=== PATIENT | female | born 1990 | race Caucasian/White ===

== ENCOUNTER 2020-10-26 17:01 | Emergency (ER) | payer OTHER, SELFPAY ==
--- NOTE | ~2020-10-26 | XR_ITS ---
EXAMINATION: XR wrist RT min 3V DATE: 10/26/2020 17:37 INDICATION: Medial sided right wrist pain post injury TECHNIQUE: Posteroanterior, ulnar deviation, oblique, and lateral views of the right wrist were obtai navya. COMPARISON: none FINDINGS: Alignment is normal. No fracture. Joint spaces are normal. Soft tissues are unremarkable. IMPRESSION: 1. Negative right wrist radiographs. Reviewed, dictated and finalized at location [facility].
[2020-10-26 17:10] VITALS: BP 130/70; PULSE 96; RESP 20; TEMP 36.7; O2SAT 96
--- NOTE | 2020-10-26 17:12 | ED.UPPEXIN ---
HPI - Extremity Injury (Upper) General Chief Complaint: Extremity Injury, Upper Stated Complaint: Wrist pain Time Seen by Provider: 10/26/20 17:12 Source: patient Mode of arrival: ambulatory Limitations: no limitations History of Present Illness HPI narrative: 30-year-old right-handed woman comes in today complaining of right wrist pain that been present for last week. Patient states that approximately 1 week ago she was digging a hole for a post and twisted her wrist, feeling and hearing a pop in her wrist. She states that she has no numbness or tingling but over time her wrist has gotten more and more painful. Denies prior fractures and surgeries. She states that she has had multiple sprains of her wrist. She has been wearing a splint since the injury. complaint: injury to: right and wrist Onset (ago): week(s) (1) Other Extremity Injury: Right: wrist Other injuries: none Handedness: right Place: home Severity: moderate Relieving factors: immobilization and rest Exacerbating factors: movement of extremity and other ( palpation) Associated symptoms: denies other symptoms Treatments prior to arrival: cold therapy, NSAIDS and splint Related Data Allergies Allergy/AdvReac Type Severity Reaction Status Date / Time lithium Allergy Hives Verified 10/26/20 17:11 Review of Systems Review of Systems: All systems reviewed & are unremarkable except as noted in HPI and below Constitutional: Constitutional: Denies chills and Denies fever(s) ENT: Denies nasal congestion and Denies sore throat Cardiovascular: Cardiovascular: Denies chest pain and Denies radiating jaw, neck or arm pain Respiratory: Respiratory: Denies cough and Denies dyspnea Gastrointestinal: Gastrointestinal: Denies abdominal pain, Denies nausea and Denies vomiting Musculoskeletal: Musculoskeletal: Denies back pain, Reports arthralgias and Reports joint swelling Neurologic: Denies vertigo, Denies dizziness and Denies syncope Hematologic/Lymphatic: Hematologic/Lymphatic: Denies easy bleeding and Denies easy bruising Allergic/Immunologic: Allergic/Immunologic: Denies lip swelling and Denies throat swelling PMFSH Past Medical History Medical History (Updated 10/26/20 @ 17:49 by Isreal Carlos MD) Bipolar 1 disorder PTSD (post-traumatic stress disorder) Surgical History Surgical History (Updated 10/26/20 @ 17:18 by Isreal Carlos MD) Hx of tubal ligation Social History Social History (Updated 10/26/20 @ 17:21 by Isreal Carlos MD) Smoking status: Current every day smoker Alcohol intake: never Substance use: never Living arrangements: with family Additional occupation/education comments: Daycare worker Exam Const: General: healthy appearing and alert Nutritional Appearance: thin Orientation/consciousness: patient oriented x3 Limitations: no limitations Other: [id number] acute distress. Eyes: Conjunctivae: conjunctivae normal Pupils: Equal, round and reactive pupils present EOM: EOMs intact bilaterally Resp: Effort & Inspection: normal respiratory effort and not labored Auscultation: clear to auscultation bilaterally, no rales, no rhonchi and no wheezes Cardio: Rate: regular rate Rhythm: regular rhythm Heart sounds: no murmurs Skin: General skin exam: normal color, no jaundice and no pallor Rashes: no rashes Neuro: General: patient oriented x3, moves all extremities, no focal motor deficits and CN's II-XI intact bilaterally Speech: normal speech Gait exam (Neuro): Normal gait present Extrem: General: normal to inspection and no clubbing, cyanosis or edema Other: Tenderness palpation of the right distal ulna and distal radius. There is also tenderness over the carpals and proximal metacarpals of the right hand. Psych: Appearance: grossly normal and well kempt Mental Status: mental status grossly normal Affect: Anxious affect present Attitude: cooperative Thought content: Yes Normal thought con
== END 2020-10-26 18:00 | disposition home or self-care (01) ==
PROVIDERS: Emergency Provider Emergency Medicine; PCP Family Medicine
DX: S63.501A Unspecified sprain of right wrist, initial encounter (principal); Y93.H1 Activity, digging, shoveling and raking
CPT/HCPCS: 73110; 99283; L3908

== ENCOUNTER 2021-02-09 17:04 | Outpatient (CLI) | payer OTHER, SELFPAY ==
--- NOTE | ~2021-02-09 | XR_ITS ---
EXAMINATION: XR chest 2V DATE: 02/09/2021 17:25 INDICATION: Smoker with 2 months of excessive weight loss. TECHNIQUE: PA and lateral views of the chest were obtained. COMPARISON: None FINDINGS: The lungs are clear with no focal airspace opacities, pulmonary edema, pleural effusion or pneumothor ax. The cardiomediastinal silhouette is normal. Mild upper thoracic levocurvature with mild spondylos is. IMPRESSION: 1. No acute cardiopulmonary disease. Reviewed, dictated and finalized at location [facility].
== END 2021-02-09 17:05 | disposition home or self-care (01) ==
LOC: CHSIMG 17:06
PROVIDERS: PCP Family Medicine; Visit Provider Nurse Practitioner Family
DX: R63.4 Abnormal weight loss (principal)
CPT/HCPCS: 71046

== ENCOUNTER 2021-08-07 19:07 | Emergency (ER) | payer OTHER, SELFPAY ==
--- NOTE | ~2021-08-07 | CT_ITS ---
EXAMINATION: CT abdomen pelvis w con DATE: 08/07/2021 20:34 INDICATION: Right lower quadrant abdominal pain for 2 days TECHNIQUE: Computed tomography (CT) of the abdomen and pelvis was performed with 100 CC Omnipaque 350 intravenous contrast. Automated exposure control and iterative reconstruction technique were employe d. Exam dose: 168.66 mGy-cm total exam DLP. COMPARISON: None. FINDINGS: 3 mm middle lobe nodule (series 4 image 10). The liver, gallbladder, bile ducts, spleen, pancreas, pancreatic duct and adrenal glands and right ki dney are unremarkable. There is a 7.3 mm left renal cyst. The left kidney is otherwise unremarkable. No urinary tract calculus or hydroureteronephrosis. There is moderate diffuse prominence of the right bladder wall which may be due to underdistention ve rsus cystitis.. Recommend clinical correlation. Retroverted uterus with endometrial complex measuring up to almost 2 cm AP dimension, with moderate f luid in the endometrial cavity.. Normal caliber of the abdominal aorta. No intraperitoneal or retroperitoneal or pelvic mass lesion or adenopathy or ascites. No evidence of appendicitis. There is a prominent amount of fecal material in the rectum. No bowel obstruction or intraperitoneal free air. No evidence of appendicitis. Fusion at the anterior aspect of the left third and fourth lumbar vertebral bodies. No suspicious ost eolytic or osteoblastic lesions. IMPRESSION: Retroverted uterus with up to 2 cm AP dimension central endometrial echo complex moderat e fluid in the endometrial cavity Diffuse thickening and urinary bladder; cannot exclude cystitis 7.3 mm left renal cyst Reviewed, dictated and finalized at [facility]. Reviewed, dictated and finalized at location [facility]. IMPRESSION: Retroverted uterus with up to 2 cm AP dimension central endometria l echo complex moderate fluid in the endometrial cavity Diffuse thickening and urinary bladder; cannot exclude cystitis 7.3 mm left renal cyst
[2021-08-07 19:15] VITALS: BP 120/80; PULSE 88; RESP 14; TEMP 36.6; O2SAT 100
--- NOTE | 2021-08-07 19:17 | ED.ABDPAIN ---
HPI - Abdominal Pain General Chief Complaint: Abdominal Pain Stated Complaint: lower ab pain Source: patient and RN notes reviewed Mode of arrival: ambulatory Limitations: no limitations History of Present Illness MD elicited complaint: abdominal pain Pertinent past history: none Onset (ago): day(s) (2) Pain Consistency: constant Location: RLQ Severity: severe Quality: stabbing and dull Radiation: none Migration to: no migration Exacerbating factors: nothing Relieving factors: movement Associated symptoms: nausea and anorexia Related Data Patient : No Home Medications Medication Instructions Recorded Confirmed No Home Medications 08/07/21 08/07/21 Allergies Allergy/AdvReac Type Severity Reaction Status Date / Time latex Allergy Hives Verified 08/07/21 19:30 lithium Allergy Hives Verified 08/07/21 19:30 Review of Systems Review of Systems: All systems reviewed & are unremarkable except as noted in HPI and below Constitutional: Constitutional: Denies fever(s) Gastrointestinal: Gastrointestinal: Denies constipation, Denies diarrhea, Reports nausea and Denies vomiting Genitourinary: Genitourinary: Denies hematuria, Denies nocturia and Denies dysuria PMFSH Past Medical History Medical History Bipolar 1 disorder PTSD (post-traumatic stress disorder) Surgical History Surgical History Hx of tubal ligation Social History Social History Smoking status: Current every day smoker Alcohol intake: never Substance use: never Additional occupation/education comments: Daycare worker Exam Const: General: healthy appearing, no acute distress and alert Nutritional Appearance: well nourished and thin Orientation/consciousness: patient oriented x3 Other: female nurse in room during examination. HENMT: Head: normal to inspection Ears: external ears normal Eyes: Conjunctivae: conjunctivae normal Pupils: Equal, round and reactive pupils present EOM: EOMs intact bilaterally Neck: Neck: normal visual inspection Resp: Effort & Inspection: normal respiratory effort Auscultation: clear to auscultation bilaterally Cardio: Rate: regular rate Rhythm: regular rhythm GI: GI Palp: Yes Soft to palpation, Yes Tenderness to palpation present (GI) ( Moderate over McBurney's point), Yes Guarding due to palpation present (GI) ( moderate) and No Rebound tenderness present Auscultation: normal bowel sounds : General: Yes no CVA tenderness Back/Spine/Pelvis: Cervical Spine: cervical ROM normal Thoracic/Lumbar Spine: thoraco-lumbar ROM normal Skin: General skin exam: normal color Rashes: no rashes Neuro: General: patient oriented x3, moves all extremities, no meningeal signs, no focal motor deficits and CN's II-XI intact bilaterally Speech: normal speech Gait exam (Neuro): Normal gait present Extrem: General: normal to inspection and no clubbing, cyanosis or edema Psych: Appearance: grossly normal and well kempt Mental Status: mental status grossly normal Affect: normal affect Attitude: cooperative Thought content: Yes Normal thought content present Course Vital Signs Vital signs: Vital Signs Temperature 36.6 C 08/07/21 19:15 Pulse Rate 88 08/07/21 19:15 Respiratory Rate 14 08/07/21 19:15 Blood Pressure 120/80 08/07/21 19:15 Pulse Oximetry 100 08/07/21 19:15 Temperature 36.6 C 08/07/21 19:15 Pulse Rate 88 08/07/21 19:15 Respiratory Rate 14 08/07/21 19:15 Blood Pressure 120/80 08/07/21 19:15 Pulse Oximetry 100 08/07/21 19:15 MDM - Abdominal Pain MDM Narrative Medical decision making narrative: I considered acute appendicitis, constipation, bowel perforation, bowel obstruction, ovarian cyst. Lab Data Result diagrams: 08/07/21 19:40 08/07/21 19:40 Labs: Lab Re
[2021-08-07 19:56] LABS: Basophils Absolute Auto 0.04 K/mm3 (0.00-0.10); Basophils Percent Auto 0.5 % (0.0-1.0); Eosinophils Absolute Auto 0.07 K/mm3 (0.02-0.50); Hematocrit 47.5 % (35.0-49.0); Hemoglobin 16.3 g/dL (12.0-15.0); Immature Granulocyte Absolute 0.02 K/mm3 (0.00-0.00); Immature Granulocyte Percent A 0.3 % (0.0-0.0); Lymphocytes Absolute Auto 1.96 K/mm3 (1.10-4.50); Lymphocytes Percent Auto 26.8 % (18.0-42.0); Mean Corpuscular HGB Conc 34.3 g/dL (32.0-36.0); Mean Corpuscular Hemoglobin 31.7 pg (27.0-31.0); Mean Corpuscular Volume 92.2 fL (78.0-102.0); Mean Platelet Volume 12.2 fl (9.2-11.8); Monocytes Absolute Auto 0.38 K/mm3 (0.10-0.90); Monocytes Percent Auto 5.2 % (2.0-11.0); Neutrophils Absolute Auto 4.8 K/mm3 (1.7-7.2); Neutrophils Percent Auto 66.2 % (50.0-70.0); Platelet Count Result 190 K/mm3 (150-420); Red Blood Count 5.15 M/mm3 (4.20-5.40); Red Cell Distribution Width 12.5 % (11.6-14.4); White Blood Count 7.3 K/mm3 (4.8-10.8)
[2021-08-07 20:10] LABS: Alanine Aminotransferase 15 U/L (14-59); Alkaline Phosphatase 155 U/L (46-116); Anion Gap 11 mmol/L (8-16); Aspartate Amino Transferase 13 U/L (15-37); Bilirubin,Total 0.8 mg/dL (0.00-1.00); Blood Urea Nitrogen 6 mg/dL (7-18); Carbon Dioxide 26 mmol/L (21-32); Chloride 98 mmol/L (98-108); Estimated CRCL calculation 68 ml/min; Estimated Glomerular Filt Rate > 60; Glucose 114 mg/dL (70-99); Lipase 27 U/L (73-393); Osmolality Calculated 278 mOsm/kg (285-295); Potassium 3.4 mmol/L (3.5-5.1); Sodium 135 mmol/L (136-145)
[2021-08-07 20:13] LABS: Lactic Acid Reflex 1.1 mmol/L (0.4-2.0)
[2021-08-07 20:14] LABS: CRP < 0.5 mg/dL (0.0-0.9)
[2021-08-07 20:22] LABS: Appearance Urine Clear (Clear); Bilirubin Urine Negative (Negative); Color Urine Yellow (Yellow); Glucose Urine UA Negative (Negative); Ketones Urine Negative (Negative); Leukocyte Esterase Ur Negative LEU/UL (Negative); Nitrate Urine Negative (Negative); Protein Urine Negative (Negative)
[2021-08-07 20:30] LABS: Add Urine Microscopic? YES; Blood Urine Trace-Intact (Negative); RBC Urine 0-2 /hpf (0-2); Squamous Epithelial Cell Urine Moderate /hpf (Few)
[2021-08-07 20:31] LABS: Bacteria Urine 1+ /hpf; Mucus Urine Moderate /lpf
[2021-08-07] MEDS: KETOROLAC 30 MG/ML VIAL (*BKC) IV PUSH (21:18)
[2021-08-07 21:25] VITALS: BP 116/66; PULSE 72; RESP 14; TEMP 36.6; O2SAT 100
== END 2021-08-07 21:25 | disposition home or self-care (01) ==
PROVIDERS: Emergency Provider Emergency Medicine; PCP Family Medicine
DX: R10.31 Right lower quadrant pain (principal)
CPT/HCPCS: 36415; 74177; 80053; 81001; 83605; 83690; 85025; 86140; 96365; 96375; 99284; J0131; J1885; Q9967

== ENCOUNTER 2022-06-21 17:05 | Outpatient (CLI) | payer OTHER, SELFPAY ==
--- NOTE | ~2022-06-21 | XR_ITS ---
Right Shoulder Technique: AP and scapular Y views were obtained. Clinical History: Pain Findings: No fracture or dislocation is seen. Osseous alignment is anatomic. The glenohumeral and acr omioclavicular joint spaces are preserved. Soft tissues are unremarkable. Impression: Unremarkable right shoulder radiographs. Reviewed, dictated and finalized at [facility]. IC RELATIONS ASSISTANT Impression: Unremarkable right shoulder radiographs.
== END 2022-06-21 17:06 | disposition home or self-care (01) ==
LOC: CHSIMG 17:09
PROVIDERS: PCP Family Medicine; Visit Provider Nurse Practitioner Family
DX: M25.511 Pain in right shoulder (principal)
CPT/HCPCS: 73030

== ENCOUNTER 2022-08-03 11:04 | Outpatient (CLI) | payer OTHER, SELFPAY ==
--- NOTE | ~2022-08-03 | XR_ITS ---
EXAMINATION:XR_CERV2-3V_CR DATE: 08/03/2022 11:27 INDICATION: Acute onset right-sided neck pain post injury TECHNIQUE: AP, lateral and odontoid views of the cervical spine are provided. COMPARISON: None FINDINGS: A degree cervical thoracic dextrocurvature measured between C6 and T3. Sagittal alignment is normal. Odontoid is intact. Normal atlantoaxial interval. Vertebral body heights are normal. Disc spaces are normal. Cervical facet and uncovertebral joints are unremarkable. Prevertebral soft tissues are norm al. Visualized apices of lungs are clear. IMPRESSION: 1. 8 degrees cervicothoracic dextrocurvature. Otherwise negative cervical spine radiographs.. Reviewed, dictated and finalized at location L.
== END 2022-08-03 11:05 | disposition home or self-care (01) ==
LOC: CHSIMG 11:06
PROVIDERS: PCP Family Medicine; Visit Provider Nurse Practitioner Family
DX: M54.2 Cervicalgia (principal); M41.82 Other forms of scoliosis, cervical region
CPT/HCPCS: 72040

== ENCOUNTER 2023-04-22 18:45 | Emergency (ER) | payer OTHER, SELFPAY ==
--- NOTE | ~2023-04-22 | XR_ITS ---
XR chest 1V portable 04/22/2023 18:56 Indication: Shortness of breath and midsternal chest pain. Asthma. Procedure: AP portable chest Comparison: 02/09/2021 Findings: Heart size is normal. No focal air space disease, pulmonary edema, pleural effusion or susp ected pneumothorax. Impression: 1: No acute cardiopulmonary disease. Reviewed, dictated and finalized at location A. CONTROL TECHNICIAN B Impression: 1: No acute cardiopulmonary disease.
[2023-04-22 18:45] VITALS: BP 125/88; PULSE 69; PULSE 75; RESP 20; TEMP 36.1; O2SAT 100
[2023-04-22 18:48] VITALS: PULSE 75; RESP 24; O2SAT 98
--- NOTE | 2023-04-22 18:48 | ECG_ITS ---
Measurements Intervals [place] Rate: 63 P: 72 NV: 120 QRS: 83 QRSD: 90 T: 68 QT: 472 QTc: 486 Interpretive Statements BASELINE ARTIFACT/REDUCED DATA QUALITY SINUS RHYTHM NONSPECIFIC ST AND T-WAVE ABNORMALITY ABNORMAL ECG NO PREVIOUS ECG AVAILABLE FOR COMPARISON Electronically Signed On 04-23-2023 15:32:56 CASH OFFICE WORKER by Rogelio Mccall M.D.
--- NOTE | 2023-04-22 18:55 | ED.GENADULT ---
HPI - General Adult General Chief complaint: Shortness of Breath/Dyspnea Stated complaint: short of breath Time Seen by Provider: 04/22/23 18:47 History of Present Illness HPI narrative: Nereyda is a 32F with a PMH of anxiety/panic and asthma that was brought into the ED stating she had trouble breathing. It started an hour ago. It was not helped by home inhalers. No chest pain, fevers, N/V or syncope. She does start a new job this evening. Related Data Allergies Allergy/AdvReac Type Severity Reaction Status Date / Time latex Allergy Hives Verified 08/07/21 19:30 lithium Allergy Hives Verified 08/07/21 19:30 Review of Systems Review of Systems: All systems reviewed & are unremarkable except as noted in HPI and below PMFSH Past Medical History Medical History Bipolar 1 disorder PTSD (post-traumatic stress disorder) Surgical History Surgical History Hx of tubal ligation Social History Social History Smoking status: Current every day smoker Alcohol intake: never Substance use: never Living arrangements: with family Additional occupation/education comments: Daycare worker Exam Const: General: cooperative, healthy appearing, comfortable, no acute distress, well developed, alert, awake and Physically active Orientation/consciousness: oriented to person, oriented to place and oriented to time HENMT: Head: normal to inspection, normocephalic and atraumatic Ears: hearing grossly normal bilaterally and external ears normal Face/Nose/Sinus: Normal external nose present Eyes: General: appearance normal, both eyes and all related structures Periorbital: periorbital findings normal Sclera: sclerae normal Pupils: Equal, round and reactive pupils present Neck: Neck: normal visual inspection Chest: Chest palpation & inspection: normal inspection of the chest Resp: Effort & Inspection: normal respiratory effort, able to speak in complete sentences and no respiratory distress Auscultation: clear to auscultation bilaterally Cardio: Jugular venous distension: no JVD Rate: regular rate Rhythm: regular rhythm GI: Inspection: normal to inspection GI Palp: Yes Soft to palpation Auscultation: normal bowel sounds Skin: General skin exam: normal color and no rashes or lesions noted Neuro: General: oriented to person, oriented to place and oriented to time Cranial nerves: Yes Equal, round and reactive pupils present Extrem: General: normal to inspection Course Course Emergency Course: EKG showed NSR with a rate of 63, normal axis, no ST depression/elevation but does have T wave abnormality in anterior leads. XR chest 1V portable 04/22/2023 18:56 Indication: Shortness of breath and midsternal chest pain. Asthma. Procedure: AP portable chest Comparison: 02/09/2021 Findings: Heart size is normal. No focal air space disease, pulmonary edema, pleural effusion or suspected pneumothorax. Impression: 1: No acute cardiopulmonary disease. Labs showed mild leukopenia, chemistries were unremarkable, and ABG showed high O2 and low CO2 which is likely from hyperventilation from panic attack. She was much improved after the ativan. However, her COVID did come back positive. Paxlovid was sent as she has asthma. Vital Signs Vital signs: Vital Signs Temperature 97 F L 04/22/23 18:45 Pulse Rate 75 04/22/23 18:45 Respiratory Rate 20 04/22/23 18:45 Blood Pressure 125/88 04/22/23 18:45 Pulse Oximetry 100 04/22/23 18:45 Oxygen Delivery Room Air 04/22/23 18:45 Temperature 98.9 F 04/22/23 20:30 Pulse Rate 74 04/22/23 20:30 Respiratory Rate 18 04/22/23 20:30 Blood Pressure 110/72 04/22/23 20:30 Pulse Oximetry 99 04/22/23 20:30 Oxygen Delivery Room Air 04/22/23 20:30 Medical Decision Making Vital Signs Alethea
--- NOTE | 2023-04-22 18:59 | PC.NURSE ---
report to lex[facility]
[2023-04-22 19:00] VITALS: PULSE 70; RESP 31; O2SAT 100
[2023-04-22 19:01] VITALS: BP 101/82; PULSE 65; RESP 32; O2SAT 100
[2023-04-22 19:28] LABS: HCO3 ABG 17.8 mmol/L (23-29); Oxygen Content ABG 21.2 %vol (16.0-22.0); Oxygen Saturation ABG 97.9 % (95-97); PO2 ABG 105.7 mmHg (80-90); Total Hemoglobin 15.5 g/dL (12.0-18.0); pH ABG 7.51 (7.35-7.45)
[2023-04-22] MEDS: LORazepam INJ (*CRX) 2 MG/ML VIAL 1 MG IV PUSH (19:28)
[2023-04-22 19:33] LABS: Basophils Absolute Auto 0.01 K/mm3 (0.00-0.10); Basophils Percent Auto 0.2 % (0.0-1.0); Eosinophils Absolute Auto 0.06 K/mm3 (0.02-0.50); Eosinophils Percent Auto 1.3 % (1.0-6.0); Hematocrit 41.8 % (35.0-49.0); Immature Granulocyte Absolute 0.01 K/mm3 (0.00-0.00); Immature Granulocyte Percent A 0.2 % (0.0-0.0); Lymphocytes Absolute Auto 1.67 K/mm3 (1.10-4.50); Mean Corpuscular HGB Conc 35.9 g/dL (32.0-36.0); Mean Corpuscular Hemoglobin 31.6 pg (27.0-31.0); Mean Platelet Volume 12.6 fl (9.2-11.8); Monocytes Absolute Auto 0.36 K/mm3 (0.10-0.90); Monocytes Percent Auto 7.8 % (2.0-11.0); Neutrophils Absolute Auto 2.5 K/mm3 (1.7-7.2); Neutrophils Percent Auto 54.5 % (50.0-70.0); Platelet Count Result 152 K/mm3 (150-420); Red Blood Count 4.75 M/mm3 (4.20-5.40); Red Cell Distribution Width 11.9 % (11.6-14.4); Site Drawn LEFT RADIAL; White Blood Count 4.6 K/mm3 (4.8-10.8)
[2023-04-22 19:34] LABS: Device ROOM AIR; Modified Allen's Test Unable to perform
[2023-04-22 19:55] LABS: Alanine Aminotransferase 18 U/L (14-59); Albumin Level 4.1 g/dL (3.4-5.0); Alkaline Phosphatase 130 U/L (46-116); Anion Gap 9 mmol/L (8-16); Aspartate Amino Transferase 17 U/L (15-37); Bilirubin,Total 0.7 mg/dL (0.00-1.00); Blood Urea Nitrogen 9 mg/dL (7-18); Calcium 7.3 mg/dL (8.5-10.1); Carbon Dioxide 29 mmol/L (21-32); Chloride 101 mmol/L (98-108); Estimated CRCL calculation 76 ml/min; Estimated Glomerular Filt Rate > 60; Glucose 97 mg/dL (70-99); NT Pro B Type Natriuretic Pept 86 pg/mL (0-125); Osmolality Calculated 286 mOsm/kg (285-295); Potassium 3.3 mmol/L (3.5-5.1); Sodium 139 mmol/L (136-145); Total Protein 6.9 g/dL (6.4-8.2)
[2023-04-22 19:56] VITALS: BP 96/70; PULSE 60; RESP 18; TEMP 37.1; O2SAT 100
[2023-04-22 20:20] LABS: Influenza A QL RT-PCR Negative (Negative); Influenza B QL RT-PCR Negative (Negative); RSV RNA, RT-PCR Negative (Negative); SARS-CoV-2 RNA PCR Positive (Negative)
[2023-04-22 20:30] VITALS: BP 110/72; PULSE 74; RESP 18; TEMP 37.2; O2SAT 99
== END 2023-04-22 20:35 | disposition home or self-care (01) ==
PROVIDERS: Emergency Provider Family Medicine
DX: F41.0 Panic disorder [episodic paroxysmal anxiety] (principal); U07.1 COVID-19; F17.200 Nicotine dependence, unspecified, uncomplicated
CPT/HCPCS: 36415; 36600; 71045; 80053; 82805; 83880; 85025; 87637; 93005; 96374; 99284; J2060

== ENCOUNTER 2024-07-15 01:25 | Emergency (ER) | payer OTHER, SELFPAY ==
[2024-07-15] VITALS (14 sets, daily range): BP systolic 108–126; BP diastolic 62–80; PULSE 72–98; RESP 18–28; TEMP 36.5–36.6; O2SAT 96–99
--- NOTE | ~2024-07-15 | XR_ITS ---
Clinical Indication: Chest pain PA and lateral views of the chest: Comparison: 04/22/2023 Findings: The lungs are clear, without evidence of focal consolidation or pleural effusion. Cardiome diastinal silhouette is within normal limits. Bones and soft tissues are unremarkable. Impression: Normal chest. Reviewed, dictated and finalized at [facility]. ERVATION AGENT Impression: Normal chest.
--- OUTSIDE RECORDS SUMMARY | 2024-07-15 01:27 | XMS_ITS | Encounter Summary ---
Author Organization [facility] Address [facility] [place] [address] Care Team Providers Care Executive Assistant To General Counsel Name Role Phone Marcie Desir MD Primary Care Provider [phone] Encounter Details Date Type Department Care Team (Late st Contact Info) Description 10/26/2018 Abstract [facility] CONVERSION [address] [place], [place] [id number] , Generic Conversion, Social History Tobacco Use Types Packs/Day Years Used Date Smoking Tobacco: Never Assessed Comments Unknown Sex and Gender Information Value Date Recorded Sex Assigned at Not on file Legal Sex Female 5:43 PM [employer] Gender Identity Not on file Sexual Orientation Not on file documented as of this encounter Plan of Treatment Not on file documented as of this encounter Visit Diagnoses Not on filedocumented in this encounter Care Teams Executive Assistant To General Counsel Relationship Specialty Start Date End Date Marcie Deisr MD [address] [place] [id number] PCP - General FAMILY PRACTICE 02/07/20 documented as of this encounter
--- OUTSIDE RECORDS SUMMARY | 2024-07-15 01:27 | XMS_ITS | Data Portability ---
Author Organization [facility], [address] [facility] ([place]) Address [address] [place] [address] Care Team Providers Care Radiological Technologist Name Role Phone MARCELA HIGHTOWER Primary Care Provider SADIE CASAREZ Referring Provider Assessment Encounter Date Assessment Date Assessment LastModified by Organization Details LastModified Time 10/01/2023 10/01/2023 I discussed with the patient that she has some what appears to be very minor partial-thickness tearing of a portion of her supraspinatus tendon. This is a new finding compared to the MRI she had prior to the injury and there is some surrounding rotator cuff tendinopathy. I discussed with her that I do not think anything is present in her shoulder that would currently require consideration of surgical treatment. Treatment options were discussed with her. Today it was elected proceed with a corticosteroid injection into the subacromial bursa as well as with physical therapy. The decision to proceed with corticosteroid injection was made in the office today after evaluation including history, examination, independent review of her MRI images and discussion of her diagnosis and treatment options. Physical therapy is ordered. She will be reevaluated in 6 weeks. Risks, benefits and possible complications of corticosteroid injection were discussed. The skin over the posterior aspect of the right shoulder was cleaned with alcohol and Betadine. The right shoulder subacromial bursa was injected with 12 mg of betamethasone and 4 cc of bupivacaine. The patient tolerated the injection well. [email or web address] Not available 10/02/2023 05:59:45 11/12/2023 11/12/2023 The patient is having rotator cuff impingement symptoms in her right shoulder. Her symptoms are pretty severe. She has not responded to conservative treatment measures. She does not have a significant rotator cuff tear which would require repair. Treatment options were discussed with her. She is going to be scheduled for right shoulder arthroscopy with subacromial decompression. The surgical procedure was discussed with her in detail, including risks, benefits, and possible complications. Possible complications discussed included infection and the possibility of persistent or recurrent symptoms. All of her questions were answered and she is agreeable to proceed with the proposed surgical procedure. [facility] [email or web address] Not available 11/13/2023 08:08:55 01/07/2024 01/07/2024 The patient is currently doing well after her right shoulder subacromial decompression for rotator cuff impingement syndrome. She can slowly increase activities with her right arm and shoulder as tolerated. Physical therapy is ordered to work on her strength and range of motIon. She will be reevaluated in 4 to 6 weeks. [facility] [email or web address] Not available 01/11/2024 11:02:08 03/03/2024 03/03/2024 Chief complaint: Status post right shoulder SAD History of present illness: Patient is a 33-year-old female presenting to the clinic for postoperative evaluation 9 weeks following a right shoulder SAD. The patient reports she is doing well in terms of her pain but she is still noticed weakness and decreased range of motion of her right shoulder. Patient was given orders for physical therapy at her 2-week postop appointment and reports she has had to miss some sessions due to work. She states she has been working on exercises at home. Patient believes some more physical therapy would be beneficial for her recovery. Exam: Patient is in no acute distress and is well-dressed and well-nourished. Patient has appropriate mood and affect. Respirations are nonlabored. Sclera are nonicteric. Patient is able to forward flex and abduct to 100 degrees. This does improve with assistance. Patient has positive empty can and speeds test on the right. Negative Solo impingement signs. Patient has slightly decreased internal and external rotation of the right shoulder. Assessment: Status post right shoulder SAD Plan: Patient is doing well following her surgery. I do believe some more physical therapy would be beneficial for her. She was given a new order for more physical therapy sessions. She will follow-up in 3 months if she does not feel she has improved with her therapy. Patient will call the office with any questions or concerns before that time. [email or web address] Not available 03/03/2024 13:26:49 Plan of Treatment Reminders Order Date Submit Date Provider Last Modified By Organization Details Last Modified Time Details Appointments None recorded. Lab None recorded. Referral physical therapist referral - PT RIGHT SHOULDERA & PROMSTRETCH ING, STRENGTHENI NG TRAMAINE.MODALIT IES & HEP 2023 024 [email or web address] Not available 4 14:21:18 physical therapist referral - PT R shoulder 2xs/week for 4-6 weeks, A and PROM as tolerated, strengtheni ng as tolerated, modalities, HEP. 2023 024 Not available 4 07:18:20 physical therapist referral - PT R shoulder 2xs/week for 4-6 weeks, evaluate and treat 2023 024 [email or web address] Not available 12:00:16 Procedures None recorded. Surgeries None recorded. Imaging None recorded. Medication Orders None recorded. Patient TargetsNo targets recorded. Patient InstructionsNo instructions recorded. Reason for Referral Physical Therapist Referral for Rupture of rotator cuff of right shoulder PT R shoulder 2xs/week for 4-6 weeks, evaluate and treat Referring Physician: Manolo Castillo, Orthopedics, Encounter Date: 10/01/2023 Physical Therapist Referral for Tendinitis of right rotator cuff PT R shoulder 2xs/week for 4-6 weeks, A and PROM as tolerated, strengthening as tolerated, modalities, HEP. Referring Physician: Manolo Castillo, Orthopedics, Encounter Date: 01/07/2024 Physical Therapist Referral for Impingement syndrome of right shoulder region PT RIGHT SHOULDERA & PROMSTRETCHING, STRENGTHENING TRAMAINE.MODALITIES & HEP Referring Physician: Roma Lamas, Orthopedics, Encounter Date: 03/03/2024 Results Created Date Observation Date Name Description Value Unit Range Abnormal Flag Note LastModifiedBy Organization Detail LastModifiedTime 09/26/19 24 08/15/2022 MRI, shoul ana luisa, w/o contr ast No observ ation record ed. [facility] [address] [facility], [place], [address], 09/26/2023 20:51:00 10/10/19 MRI, shoul ana luisa, w/o contr ast No observ ation record ed. [email or web address] Not Available 2023 13:37:45 01/03/20 24 08/14/2022 imagi ng/di agnos tic resul t No observ ation record ed. Not Available 01/03/2024 01:10:41 01/03/20 24 08/15/2022 imagi ng/di agnos tic resul t No observ ation record ed. Not Available 01/03/2024 01:10:47 Result Notes None recorded. Problems Name Problem SNOMED Code Status Onset Date Resolution Date Notes Provider Name and Address Organization Details Recorded Time Tendinitis of right rotator cuff 5151537786369 9104 Active 2023 Manolo Castillo MD [address] [place] [address], [phone], [facility] 4 13:57:54 Impingement syndrome of right shoulder region 9921471539589 02 Active 2023 ROMA LAMAS PA-C [address] [place] [address], [phone], [facility] 4 13:23:08 Rupture of rotator cuff of right shoulder 2501252964850 9103 Active 2023 Manolo Castillo MD [address] [place] [address], [phone], [facility] 4 09:42:47 Problem Notes None recorded. Procedures Surgical History None recorded. Imaging Results Imaging Date Name Status LastModified by [facility] Details LastModified Time 08/15/2022 MRI, shoulder, w/o contrast completed [email or web address] [facility] [address] [place], [address], 09/26/2023 20:51:00 10/10/2023 MRI, shoulder, w/o contrast completed [email or web address] Information not available 10/10/2023 13:37:45 08/14/2022 imaging/diagn ostic result completed Information not available 01/03/2024 01:10:41 08/15/2022 imaging/diagn ostic result completed Information not available 01/03/2024 01:10:47 Procedure Notes None recorded. Medical Equipment None Reported. Allergies Allergen ID Allergen Name Allergen Category Reaction Reaction Severity Criticality Documentation Date Start Date Code Code System Note Provider Name and Address Organization Details Recorded Time 1306280 latex gloves medicatio n Not available Not available Not available 02/27/20242023 08544 UNK Not Available Not Available Not Available 383971 egg extract food,medi cation Not available Not available Not available 06/18/20232014 80893 15 RxNorm Comme nt: Eggs React ion Date: 29 May 2012 ; Not Available Not Available Not Available 037448 lithium carbonate medicatio n Not available Not available Not available 06/18/20232014 69733 RxNorm Comme nt: React ion Date: 12 Mar 2007 ; Not Available Not Available Not Available Medications Name Sig Start Date Stop Date Status Note LastModified by Organization Details LastModified Time medroxyproge sterone 10 mg tablet TAKE 1 TABLET BY MOUTH DAILY FOR 10 DAYS 12/18 completed Not Available Not Available Not Available hydrocodone 5 mg-acetamino phen 325 mg tablet TAKE 1 TO 2 TABLETS BY MOUTH EVERY 6 HOURS NEEDED FOR PAIN active Not Available Not Available No t Available prednisone 20 mg tablet TAKE 1 TABLET BY MOUTH EVERY DAY FOR 5 DAYS, THEN 1 TABLET DAILY X 5 DAYS 12/18 completed Not Available Not Available Not Available omeprazole 40 mg capsule,brayden yed release 1 (ONE) CAPSULE DAILY ON EMPTY STOMACH FOR STOMACH PAIN active Not Available Not Available No t Available tramadol 50 mg tablet TAKE 1 TABLET BY MOUTH 2 TIMES A DAY NEEDED FOR SEVERE PAIN active Not Available Not Available No t Available naproxen 500 mg tablet TAKE 1 TABLET BY MOUTH TWICE A DAY 12/18 completed Not Available Not Available Not Available EC-Naproxen 500 mg tablet,delay ed release TAKE 1 TABLET BY MOUTH TWICE A DAY 12/18 completed Not Available Not Available Not Available Paxlovid 300 mg (150 mg x 2)-100 mg tablets in a dose pack TAKE 2 TABLETS (NIRMATR JOEL) AND TAKE 1 TABLET (RITONAV IR) BY MOUTH TWICE A DAY FOR 5 DAYS 12/18 completed Not Available Not Available Not Available Vitals None Recorded Social History Question Answer Notes LastModified by Organizat ion Details LastModified Time Do You Have An Advance Directive? No [email or web address] Information not available 01/01/2024 What Is Your Level Of Alcohol Consumption? None [email or web address] Information not available 01/01/2024 What Is Your Level Of Caffeine Consumption? Heavy [email or web address] Information not available 01/01/2024 Are You Currently Employed? Yes [email or web address] Information not available 01/01/2024 Which Illicit Or Recreational Drugs Have You Used? Marijuana [email or web address] Information not available 01/01/2024 What Is Your Occupation? [employer] [email or web address] Information not available 01/01/2024 How Many Times Per Week Do You Exercise? 5-7 Times Per Week [email or web address] Information not available 01/01/2024 How Many Packs Per Day (PPD)? 1 Pack Per Day [email or web address] Information not available 01/01/2024 How Long Have You Smoked? 20 Yrs [email or web address] Information not available 01/01/2024 Do You Have A Medical Power Of Breakdown Man? No [email or web address] Information not available 01/01/2024 What Was The Date Of Your Most Recent Tobacco Screening? 01/07/2024 [email or web address] Information not available 01/01/2024 What Is Your Relationship Status? [email or web address] Information not available 01/01/2024 Do You Use Any Illicit Or Recreational Drugs? Yes [email or web address] Information not available 01/01/2024 Sex: Unknown Functional Status Question Answer Note LastModified by Organization D etails LastModified Time What is your exercise level? Heavy [email or web address] Information not available 01/01/2024 Mental Status None recorded. Family History Relationship Description Onset Age of this Age Resolved Age Notes LastModified by Organization Details LastModified Time Mother Arthritis [email or web address] Not available 01/01/2024 01:13:25 Mother Asthma [email or web address] Not available 01:13:25 Sister Asthma [email or web address] Not available 01:13:25 Father Family history of malignant neoplasm [email or web address] Not available 2023 01:13:25 Father Heart disease [email or web address] Not available 2023 01:13:25 Father Hypertensive disorder [email or web address] Not available 2023 01:13:25 Father Hypercholest erolemia [email or web address] Not available 2023 01:13:25 Father Disorder of thyroid gland [email or web address] Not available 2023 01:13:25 Paternal Grandfather Family history of malignant neoplasm [email or web address] Not available 2023 01:13:25 Paternal Grandfather Hypercholest erolemia [email or web address] Not available 2023 01:13:25 Maternal Grandmother Diabetes mellitus [email or web address] Not available 2023 01:13:25 Unspecified Relation Kidney disease [email or web address] Not available 2023 01:13:25 Medical History Condition Response Attention-deficit Hyperactivity Disorder N High Blood Pressure N Thyroid Problems N COPD N Depression Y Anemia N Anxiety Disorder Y Diabetes N Bleeding Disorder N Arthritis Y Hyperlipidemia N Cancer N Stroke N Asthma N Seizures N Heart Disease N Fibromyalgia N Osteoporosis N Kidney Disease N Gynecological HistoryNo gynecological history recorded. Obstetrics History GPAL:G 0 P 0 0 0 0 Past Encounters Encounter ID Performer Location Encounter Start Date Encounter Closed Date Diagnosis/Indication Diagnosis SNOMED-CT Code Diagnosis ICD10 Code Diagnosis Note [id number] Manolo Castillo MD [address] [facility] ([place] [address] [place] [address] 10/01/2023 09:14:43 10/01/2023 10:43:34 Rupture of rotator cuff of right shoulder 3807461761 9132946 M75.232 [id number] Manolo Castillo MD [address] [facility] [address] [place] [phone] 11/12/2023 08:59:26 11/12/2023 10:55:59 [id number] Manolo Castillo MD [facility] ([place] [address] [place] [address] 01/07/2024 13:15:00 01/17/2024 09:57:06 Tendinitis of right rotator cuff 0789850023 2455650 M67.813 [id number] Manolo Castillo MD [facility] ([place]) [address] [place] [address] 03/03/2024 13:01:12 03/03/2024 13:53:23 Impingement syndrome of right shoulder region 1272478812 54055 M75.41 History of musculoskeletal disease 667739828 Z87.39 Additional diagnosis detail: Personal history of other diseases of the musculoske letal system and connective tissue Follow-up orthopedic assessment 770595181 Z47.89 Additional diagnosis detail: Encounter for other orthopedic aftercare Postproced ural state finding [id number] Z98.890 Additional diagnosis detail: Other specified postproced ural states Health Concerns Section Related Observation LastModified by Organization Detai ls LastModified Time None Recorded Concern Status LastModified by Organization Details LastModified Time None Recorded Advance Directives Directive N: Payers Encounter Date Sequence Insurance Name Policy Number Policy Lam Covered Member ID Lam Member ID Guarantor Name 10/01/2023 1 [facility] ON OR AFTER 11/18/20 (MEDICAID REPLACEMENT - HMO) Breana Cao [id number] Breana Cao 11/12/2023 1 [facility] ON OR AFTER 11/18/20 (MEDICAID REPLACEMENT - HMO) Breana Cao [id number] Breana Cao 01/07/2024 1 [facility] ON OR AFTER 11/18/20 (MEDICAID REPLACEMENT - HMO) Breana Cao [id number] Breana Cao 03/03/2024 1 [facility] ON OR AFTER 11/18/20 (MEDICAID REPLACEMENT - HMO) Breana Cao [id number] Breana Cao Notes Date Note Type Note Provider Name and Address Organization Details Recorded Time 4 text/html Breana is seen today for follow-up of her right shoulder. She had an injury to her right shoulder and following injury had subsequent pain and decreased range of motion. She had symptoms in her right shoulder prior to the injury but they are much worse after the injury. She has had an MRI to evaluate for rotator cuff tear. She is here today to review the results of that. She is still having significant pain in the right shoulder and significant difficulty using her right arm away from the body above the shoulder level. She has no complaints of neck pain and no complaints of numbness and tingling in her right hand. Manolo Castillo MD [address] [place] [address], [phone], [facility] 10/02/2023 06:01:31 4 text/html Breana is seen for follow-up concerning her right shoulder. She has had corticosteroid injection as well as physical therapy for treatment of rotator cuff symptoms in her shoulder. She does not feel the treatment has improved her symptoms. She still has significant pain when trying to do range of motion with her shoulder. She has pain at night. She has difficulty using her right arm away from the body above shoulder level. Manolo Castillo MD [address] [place] [address], [phone], [facility] 11/15/2023 05:23:26 4 text/html Breana returns for follow-up about 2 weeks after right shoulder arthroscopy with subacromial decompression. She feels her pain is well controlled and her pain is improved over her preoperative status. She has been using her right arm for light activities as tolerated. Breana Gilmannataliamaria fernanda a 33 year oldfemalepresenting for care. Manolo Castillo MD [address] [place] [address], [phone], [facility] 01/16/2024 21:59:48 4 text/html Breana Gilmannataliamaria fernanda a 33 year oldfemalepresenting for care. ROMA LAMAS PA-C [address] [place] [address], [phone], [facility] 03/07/2024 09:24:38 OBGyn Episode No OBEpisode recorded.
--- OUTSIDE RECORDS SUMMARY | 2024-07-15 01:27 | XMS_ITS | Clinical Summary ---
Author Organization [facility] Address [facility] [place] [address] Care Team Providers Care Director Heart Name Role Phone Marcie Desir MD Primary Care Provider [phone] Allergies Active Allergy Reactions Criticality Noted Date Comments Latex Rash Low 02/07/2020 [place] Rash Low 02/07/2020 Medications HYDROcodone-acet aminophen (NORCO) 5-325 MG tabletIndication s:Acute Pain < 3 Day Supply Take 1 tablet by mouth every 8 (eight) hours as needed for Pain. Indications : Acute Pain < 3 Day Supply 6 tablet 07/07/2023 Active Family History Medical History Relation Comments Heart Disease Father Depression Mother Relation Status Comments Father Mother Social History Tobacco Use Types Packs/Day Years Used Date Smoking Tobacco: Every Day Cigarettes Smokeless Tobacco: Never Tobacco Cessation:Ready to Q uit: Not Asked; Counseling Given: Not Answered Alcohol Use Standard Drinks/Week Comments Not Currently 0 (1 standard drink = 0.6 oz pur e alcohol) Comments No Sex and Gender Information Value Date Recorded Sex Assigned at Not on file Legal Sex Female 5:43 PM [employer] Gender Identity Not on file Sexual Orientation Not on file Last Filed Vital Signs Vital Sign Reading Time Taken Comments Blood Pressure 115/66 07/07/2023 1:22 AM [employer] SERVICE ADVISOR Pulse 77 07/07/2023 1:22 AM AUTO SERVICE ADVISOR Temperature 36.4 C (97.5 F) 07/07/2023 1:22 AM AUTO SERVICE ADVISOR Respiratory Rate 16 07/07/2023 1:22 AM AUTO SERVICE ADVISOR Oxygen Saturation 100% 07/07/2023 2:30 AM AUTO SERVICE ADVISOR Inhaled Oxygen Concentration - - Weight 51.7 kg (114 lb) 07/07/2023 1:22 AM AUTO SERVICE ADVISOR Height 165.1 cm (5' 5 ) 07/07/2023 1:22 AM AUTO SERVICE ADVISOR Body Mass Index 18.97 07/07/2023 1:22 AM AUTO SERVICE ADVISOR Plan of Treatment Health Maintenance Due Date Last Done Comments Cervical Cancer Screening Pap Smear (Age 30 to 64) Every 3 Years 1990 Annual Physical 1993 Pneumococcal Vaccine: Pediatrics (0 to 5 Years) and At-Risk Patients (6 to 64 Years) (1 of 2 - PCV) 1996 Hepatitis C 2008 DTaP, Tdap and Td Vaccines (1 - Tdap) 2009 01/30/1995, 05/16/1994, 02/16/1992, Additional history exists Hepatitis B Vaccines (1 of 3 - 19+ 3-dose series) 2009 HPV Vaccines (2 - 3-dose series) 07/01/2012 06/03/2012 Cervical Cancer Screening Pap with HPV Testing (Age 30 to 64) Every 5 Years 2020 Cervical Cancer Screening with HPV 2020 COVID-19 Vaccine ( season) 2024 Influenza Adult (#1) 2024 Meningococcal B Vaccine Aged Out No l onger eligible based on patient's age to complete this topic Meningococcal Vaccine Aged Out No miguel angel leatha eligible based on patient's age to complete this topic RSV Immunizations Under 20 Months Aged Out No longer eligible based on patient's age to complete this topic [place] [address] [address] [place] [address] Member Subscriber Plan / Payer (Ef fective 2020-Present) Name:Breana Cao Relation to Subscriber:Self Name:Breana Cao Payer ID:[id number] (NAIC) Group ID:Not on file Type:Not on file Address: [place] [phone] Care Teams Director Heart Relationship Specialty Start Date End Date Marcie Desir MD [address] [place] [address] PCP - General FAMILY PRACTICE 02/07/20
--- NOTE | 2024-07-15 01:37 | ECG_ITS ---
Test Date: 2024-07-15 01:52:04 Measurements Intervals [place] Rate: 69 P: 74 DC: 101 QRS: 85 QRSD: 94 T: 61 QT: 464 QTc: 498 Interpretive Statements SINUS RHYTHM WITH SINUS ARRHYTHMIA WITH SHORT DC INTERVAL BORDERLINE ST ABNORMALITY- INFERIOR LEADS BASELINE ARTIFACT- I, II, III, AVR, AVL, AVF, V1-V6 BORDERLINE ECG No previous ECG available for comparison Electronically Signed On 07-15-2024 06:45:47 CRYSTAL REPORT DEVELOPER by Juan Lin D.O.
--- NOTE | 2024-07-15 01:38 | ED_ITS ---
HPI - SOB/Dyspnea General Chief Complaint: Shortness of Breath/Dyspnea Stated Complaint: shortness of breath Time Seen by Provider: 07/15/24 01:36 Source: patient Mode of arrival: ambulatory Limitations: no limitations History of Present Illness HPI Narrative: This is a 33-year-old female with reported history of asthma who presents to the emergency department complaining substernal chest pressure and shortness of breath for past 3-4 days. The patient states this improves somewhat with albuterol use then recurs. She denies associated nausea, vomiting, loss of consciousness, or known trauma. She has no other complaints at this time. Related Data Allergies Allergy/AdvReac Type Severity Reaction Status Date / Time latex Allergy Hives Verified 08/07/21 19:30 lithium Allergy Hives Verified 08/07/21 19:30 Review of Systems 2 Review of Systems: last menstrual period 1 week ago All systems reviewed & are unremarkable except as noted in HPI and below PMFSH Past Medical History Medical History PTSD (post-traumatic stress disorder) Bipolar 1 disorder Surgical History Surgical History Hx of tubal ligation Social History Social History Smoking status: Current every day smoker Alcohol intake: never Substance use: never Living arrangements: with family Additional occupation/education comments: Daycare worker Exam 2 Narrative: GENERAL: Well-developed, well-nourished, and in no acute distress. Appears anxious HEAD: Normocephalic, atraumatic. EYES: PERRLA and EOMI. CHEST: Clear to auscultation. No respiratory distress. No wheezes rales or rhonchi HEART: Regular rate and rhythm. No murmur heard. Normal peripheral pulses. ABDOMEN: Soft, nontender, nondistended, normal active bowel sounds. EXTREMITIES: Normal range of motion. No edema. SKIN: Warm, dry, no rash. NEURO: Alert and oriented x3. No focal deficit. Moving all 4 limbs spontaneously PSYCH: anxious mood and affect. Course Course Emergency Course: 03:02 - EKG not concerning for ischemia. Chest x-ray by my review not concerning for pneumothorax or other acute cardiopulmonary process. (Stat rad interpretation pending). Troponin negative. Heart score 1. I do not suspect ACS. After GI cocktail the patient states her pain is improving. Chemistries demonstrate hypocalcemia with calcium of 5.8 and hypokalemia with potassium 2.7. Will replete with plan for discharge. I discussed the findings and recommendations with the patient. Discussed return and emergency precautions including signs/symptoms of ACS and respiratory distress. The patient voiced understanding and agreement with the plan. All questions answered to her satisfaction. Vital Signs Vital signs: Vital Signs Temperature 98 F 07/15/24 01:30 Pulse Rate 98 07/15/24 01:30 Respiratory Rate 28 H 07/15/24 01:30 Blood Pressure 121/72 07/15/24 01:30 Pulse Oximetry 99 07/15/24 01:30 Oxygen Delivery Room Air 07/15/24 01:30 Temperature 98 F 07/15/24 01:30 Pulse Rate 85 07/15/24 02:39 Respiratory Rate 20 07/15/24 02:39 Blood Pressure 122/80 07/15/24 02:39 Pulse Oximetry 98 07/15/24 02:39 Oxygen Delivery Room Air 07/15/24 02:39 MDM - SOB/Dyspnea MDM Narrative Medical decision making narrative: plan:, imaging, anxious lysis, EKG, reassess Differential Diagnosis Differential diagnosis: Likely community acquired pneumonia, asthma with exacerbation, pulmonary embolism and other ( anxiety, , metabolic abnormality, other) Lab Data 07/15/24 01:58 07/15/24 01:58 Labs: Lab Results 07/15/24 Range/Units 01:58 WBC 7.1 (4.8-10.8) K/mm3 RBC 4.54 (4.20-5.40) M/mm3 Hgb 13.7 (12.0-15.0) g/dL Hct 40.7 (35.0-49.0) % MCV 89.6 (78.0-102.0) fL MCH 30.2 (27.0-31.0) pg MCHC 33.7 (32-36) g/dL RDW 12.5 (11.6-14.4) % Plt Count 210 (150-420) K/mm3 MPV 11.5 (9.2-11.8) fl Immature Gran % (Auto) 1.0 H (0.0-0.0) % Neut % (Auto) 63.6 (50.0-70.0) % Lymph % (Auto) 26.7 (18.0-42.0) % [place] % (Auto) 6.9 (2.0-11.0) % Eos % (Auto) 1.4 (1.0-6.0) % Baso % (Auto) 0.4 (0.0-1.0) % Lymph # (Auto) 1.89 (1.10-4.50) K/mm3 [place] # (Auto) 0.49 (0.10-0.90) K/mm3 Eos # (Auto) 0.10 (0.02-0.50) K/mm3 Baso # (Auto) 0.03 (0.00-0.10) K/mm3 Abs Immat Gran (auto) 0.07 H (0.00-0.00) K/mm3 Absolute Neuts (auto) 4.49 (1.70-7.20) K/mm3 Absolute Nucleated RBC 0.00 (0.00-0.00) K/mm3 Nucleated RBC % 0.0 (0-0.0) % D-Dimer 0.27 (0.19-0.50) mg/L Sodium 141 (136-145) mmol/L Potassium 2.7 L (3.5-5.1) mmol/L Chloride 101 (98-108) mmol/L Carbon Dioxide 30 (21-32) mmol/L Anion Gap 10 (4-12) mmol/L BUN 5 L (7-18) mg/dL Creatinine 0.65 (0.55-1.02) mg/dL Estim Creat Clear Calc Not Reportable Estimated GFR > 60 (59 - ) Glucose 93 (70-99) mg/dL Calculated Osmolality 289 (285-295) mOsm/kg Calcium 5.8 L* (8.5-10.1) mg/dL Total Bilirubin 0.6 (0.00-1.00) mg/dL AST 16 (15-37) U/L ALT 14 (14-59) U/L Alkaline Phosphatase 159 H (46-116) U/L Troponin I 6.4 (0.00-60.4) ng/L Total Protein 6.7 (6.4-8.2) g/dL Albumin 3.8 (3.4-5.0) g/dL Lipase 17 (16-77) U/L ECG Data EKG #1: Attestation: I personally reviewed and interpreted this ECG as follows: ECG completion date: 07/15/24 ECG completion time: 01:52 Prior ECG tracings: not available for review Interpretation: Baseline artifact, sinus rhythm, rate 69, normal axis, no ST segment elevations or T-wave inversions concerning for ischemia normal intervals with QTC of 482. Discharge Plan Discharge Clinical Impression: Atypical chest pain, Hypocalcemia, Hypokalemia GERD (gastroesophageal reflux disease) Qualifiers: Esophagitis presence: esophagitis presence not specified Qualified Code(s): K 21.9 - Gastro-esophageal reflux disease without esophagitis Patient Disposition: Home, Self-Care Condition: Stable Instructions: Antibiotic Form, Chest Pain (ED), Hypocalcemia (ED) Patient Language: Martiniquais Prescriptions: New omeprazole 40 mg capsule,delayed release(DR/EC) 40 mg PO DAILY Qty: 30 0RF Follow-up/Referrals: Marcie Desir MD [Primary Care Provider] - 2 Weeks Time of Disposition: 03:06
[2024-07-15 02:06] LABS: Basophils Absolute Auto 0.03 K/mm3 (0.00-0.10); Basophils Percent Auto 0.4 % (0.0-1.0); Eosinophils Percent Auto 1.4 % (1.0-6.0); Hematocrit 40.7 % (35.0-49.0); Hemoglobin 13.7 g/dL (12.0-15.0); Immature Granulocyte Absolute 0.07 K/mm3 (0.00-0.00); Lymphocytes Absolute Auto 1.89 K/mm3 (1.10-4.50); Lymphocytes Percent Auto 26.7 % (18.0-42.0); Mean Corpuscular HGB Conc 33.7 g/dL (32-36); Mean Corpuscular Hemoglobin 30.2 pg (27.0-31.0); Mean Corpuscular Volume 89.6 fL (78.0-102.0); Mean Platelet Volume 11.5 fl (9.2-11.8); Monocytes Absolute Auto 0.49 K/mm3 (0.10-0.90); Monocytes Percent Auto 6.9 % (2.0-11.0); Neutrophils Absolute Auto 4.49 K/mm3 (1.70-7.20); Neutrophils Percent Auto 63.6 % (50.0-70.0); Platelet Count Result 210 K/mm3 (150-420); Red Blood Count 4.54 M/mm3 (4.20-5.40); Red Cell Distribution Width 12.5 % (11.6-14.4); White Blood Count 7.1 K/mm3 (4.8-10.8)
[2024-07-15 02:16] LABS: D Dimer 0.27 mg/L (0.19-0.50)
--- OUTSIDE RECORDS SUMMARY | 2024-07-15 02:19 | XMS_ITS | Encounter Summary ---
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
--- OUTSIDE RECORDS SUMMARY | 2024-07-15 02:19 | XMS_ITS | Clinical Summary ---
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 Gender Identity Not on file Sexual Orientation Not on file Last Filed Vital Signs Vital Sign Reading Time Taken Comments Blood Pressure 115/66 07/07/2023 1:22 AM JEWELRY CONSULTANT Pulse 77 07/07/2023 1:22 AM JEWELRY CONSULTANT Temperature 36.4 C (97.5 F) 07/07/2023 1:22 AM JEWELRY CONSULTANT Respiratory Rate 16 07/07/2023 1:22 AM JEWELRY CONSULTANT Oxygen Saturation 100% 07/07/2023 2:30 AM JEWELRY CONSULTANT Inhaled Oxygen Concentration - - Weight 51.7 kg (114 lb) 07/07/2023 1:22 AM JEWELRY CONSULTANT Height 165.1 cm (5' 5 ) 07/07/2023 1:22 AM JEWELRY CONSULTANT Body Mass Index 18.97 07/07/2023 1:22 AM JEWELRY CONSULTANT Plan of Treatment Health Maintenance Due Date [...] patient's age to complete this topic [place] [address] [place] [address] Member Subscriber Plan / Payer (Ef fective 2020-Present) Name:Breana Cao Relation to Subscriber:Self Name:Breana Cao Payer ID:[id number] (NAIC) Group ID:Not on file Type:Not on file Address: [place] [phone] Care Teams Diaphragm Builder Relationship Specialty Start Date End Date Marcie eDsir MD [address] [place] [address] PCP - General FAMILY PRACTICE 02/07/20
[2024-07-15 02:22] LABS: Alanine Aminotransferase 14 U/L (14-59); Albumin Level 3.8 g/dL (3.4-5.0); Alkaline Phosphatase 159 U/L (46-116); Anion Gap 10 mmol/L (4-12); Aspartate Amino Transferase 16 U/L (15-37); Bilirubin,Total 0.6 mg/dL (0.00-1.00); Blood Urea Nitrogen 5 mg/dL (7-18); Carbon Dioxide 30 mmol/L (21-32); Chloride 101 mmol/L (98-108); Estimated Glomerular Filt Rate > 60; Glucose 93 mg/dL (70-99); Lipase 17 U/L (16-77); Osmolality Calculated 289 mOsm/kg (285-295); Potassium 2.7 mmol/L (3.5-5.1); Sodium 141 mmol/L (136-145); Total Protein 6.7 g/dL (6.4-8.2); Troponin I 6.4 ng/L (0.00-60.4)
[2024-07-15] MEDS: MAG HYDROX/ALUMINUM HYD/SIMETH 30 ML, PHENobarb/HYOSCY/ATROPINE/SCOP 32.4 MG, LIDOCAINE... PO (02:25)
[2024-07-15 02:30] LABS: Calcium 5.8 mg/dL (8.5-10.1)
[2024-07-15] MEDS: CALCIUM GLUC 2,000 MG/NS 100ML 2,000 MG/100 ML BAG 100 MG IVPB (02:58)
[2024-07-15] MEDS: MAGNESIUM SULF 2 GM/WATER 50ML 2 GM/50 ML BAG IVPB (03:51)
[2024-07-15] MEDS: POTASSIUM CHLORIDE 20 MEQ PACKET (FOR LIQUID) 40 MEQ PO (03:53)
== END 2024-07-15 05:42 | disposition home or self-care (01) ==
PROVIDERS: Emergency Provider Preventive Medicine Aerospace Medicine; PCP Family Medicine
DX: K21.9 Gastro-esophageal reflux disease without esophagitis (principal); R07.89 Other chest pain; E83.51 Hypocalcemia; E87.6 Hypokalemia; F17.200 Nicotine dependence, unspecified, uncomplicated
CPT/HCPCS: 36415; 71046; 80053; 83690; 84484; 85025; 85380; 93005; 96365; 96366; 96367; 99284; A9270; J0613; J3475